=== PATIENT | female | born 1995 | race Caucasian/White ===

== ENCOUNTER 2024-04-29 11:30 | Inpatient (IN) | payer MEDICAID ==
[~2024-04-29] VITALS: Ht 167.6 cm; Wt 119.1 kg
[2024-05-10] VITALS (43 sets, daily range): BP systolic 108–169; BP diastolic 56–96; PULSE 60–106; TEMP 97.7–98.4
[2024-05-10] MEDS ORDERED: LR 1,000 ML IV SCH (06:15)
[2024-05-10] MEDS ORDERED: LR & Oxytocin 500 ML IV SCH ×2 (06:15)
--- NOTE | 2024-05-10 06:30 | NUR ---
0605- Pt arrives on unit ambulatory for scheduled induction of labor. 0616- EFM and TOCO on and tracing well. O2 sat monitor on and tracing maternal HR. VSS. Assessments completed. Unable to determine FHR baseline, FHR begins at 165 bpm then steadily decreases to 155 bpm over 15 mins, minimal variability noted through out. Pt denies complication with . Pt denies VB/LOF/UCs. +FM per Pt.
[2024-05-10 07:47] LABS: BASO % 0.2 % (0.0-2.0); EOS # 0.1 K/mm3 (0.0-0.7); EOS % 0.5 % (0.0-4.0); GRAN # 7.2 K/mm3 (1.4-6.5); GRAN % 70.1 % (42.2-75.2); HEMOGLOBIN 12.2 g/dl (12.5-16.0); LYMPH # 2.2 K/mm3 (1.2-3.4); LYMPH % 21.3 % (20.0-51.0); MEAN CELL VOLUME 93 fl (80.0-100.0); MEAN CORPUSCULAR HEMOGLOBIN 31 pg (27-31); MEAN CORPUSCULAR HGB CONC 33 g/dl (33.0-37.0); MEAN PLATELET VOLUME 11.4 fl (7.4-10.4); MONO # 0.8 K/mm3 (0.1-0.6); MONO % 7.6 % (1.7-9.3); PLATELET COUNT 235 K/mm3 (130-400); RED BLOOD COUNT 3.93 M/mm3 (4.10-5.30); REDCELL DISTRIBUTION WIDTH-CV 12.9 % (11.5-14.5)
[2024-05-10 07:49] LABS: HEMATOCRIT 36.5 % (37.0-47.0)
[2024-05-10 07:59] LABS: TRICYCLIC ANTIDEPRESS URINE NEGATIVE (NEGATIVE)
--- NOTE | 2024-05-10 08:45 | NUR ---
0836- Dr Upton at bedside, discusses IOL, Pt denies questions. Bedside US performed by , fam presentation. SVE and AROM, large amount of clear, odorless fluid noted. Pt tolerated well.
--- NOTE | 2024-05-10 10:30 | NUR ---
1015- Pt very uncomfortable with UCs, requesting epidural at this time. SVE per Pt request. Pt repositions for comfort, IVF bolus initiated. Yuni Pike, IBRAHIMA updated but doing epidural in other room.
--- NOTE | 2024-05-10 11:00 | NUR ---
Pt updated that CLIENT FINANCE ANALYST was called to emergency C/S. Pt understanding.
--- NOTE | 2024-05-10 11:15 | NUR ---
1110- Pt calls this RN to bedside, reports feeling pressure with UCs. SVE with Pt's permission. /2, PRIVATE EQUITY ANALYST still unavailable, Pt continues to be understanding despite being very uncomfortable with UCs. FHR and TOCO adjusted by RN.
--- NOTE | 2024-05-10 11:30 | NUR ---
1115- This RN remains at bedside with Pt, coaching through UCs. Pt not coping well with pain. FHR not tracing well due to maternal frequent position changes and pain, adjusted frequently by this RN. 1125- Pitocin off due to not being able to assess FHR tracing and UCs on monitor. Pt crying approximately every 2 mins with UCs. This RN remains at bedside with Pt.
--- NOTE | 2024-05-10 11:45 | NUR ---
1140- Pt assited to sitting on side of bed then standing at bedside for comfort. This RN remains at bedside adjusting monitors.
[2024-05-10] MEDS ORDERED: ROPivacaine PF 0.2% 200 ML IV ONE (11:58)
--- NOTE | 2024-05-10 12:15 | NUR ---
1154- Addison, AWS SOLUTION ARCHITECT at bedside. Pt sitting on edge of bed. Addison discusses epidural and answers questions. 1204- Pt assisted to sitting for epidural placement. O2 sat monitor on and tracing maternal HR. US noted to be tracing maternal HR due to maternal position. 1216- Test dose, see anesthesia record. 1221- Pt assisted to semi-fowlers with WL, EFM and TOCO adjusted. This RN remains at bedside monitoring VS and FHR.
[2024-05-10] MEDS ORDERED: Naloxone 0.4 MG/ML VIAL IV PRN ×3 (12:45→15:30)
[2024-05-10] MEDS ORDERED: diphenhydrAMINE 25 MG CAP PO PRN ×2 (12:45)
[2024-05-10] MEDS ORDERED: Ondansetron 4 MG/2 ML VIAL IV PRN ×2 (12:45)
[2024-05-10] MEDS ORDERED: ePHEDrine 50 MG/10 ML VIAL IV PRN ×2 (12:45)
[2024-05-10] MEDS ORDERED: diphenhydrAMINE 50 MG/ML 1 ML VIAL IV PRN ×2 (12:45)
--- NOTE | 2024-05-10 14:33 | NUR ---
1420- Pt calls RN to bedside with complaints of intense pressure, SVE complete/+[address] Upton notified and he reports coming to hospital now. Pt and room prepped for delivery. Antwon, nursery RN and Jose Luis, bellows charger assembler at bedside. Perdomo removed without difficulty. 1427- Dr Upton at bedside. Pt begins pushing with UC. MD monitoring FHR tracing from bedside. 1433- of viable female infant. Tended to by nursery RN. 1436- Spontaneous delivery of placenta, Pitocin restarted at 333ml/hr. Fundus massaged to firm by MD. Perineum intact. Pericare provided. Clean chux and ice pack under Pt.
[2024-05-10] MEDS ORDERED: Loratadine 10 MG TAB PO PRN (14:45)
[2024-05-10] MEDS ORDERED: Magnes Hydrox (MOM) 80 MG/ML 30 ML CUP PO PRN (14:45)
[2024-05-10] MEDS ORDERED: oxyCODONE 5 MG TAB PO PRN (15:30)
[2024-05-10] MEDS ORDERED: Measles/Mumps/Rubella Virus Vaccine Live w Diluent 0.5 ML VIAL SQ SCH (15:30)
[2024-05-10] MEDS ORDERED: Witch Hazel 50% Pads Bulk TUB TP PRN (15:30)
[2024-05-10] MEDS ORDERED: Mag/Al Hydrox/Simeth Susp 30 ML CUP PO PRN (15:30)
[2024-05-10] MEDS ORDERED: Acetaminophen 500 MG TAB PO SCH (15:30)
[2024-05-10] MEDS ORDERED: Phenylephrine/Mineral Oil/Petrolatum 57 GM TUBE RC PRN (15:30)
[2024-05-10] MEDS ORDERED: Ibuprofen 600 MG TAB PO SCH (15:30)
[2024-05-10] MEDS ORDERED: Sennosides/Docusate 8.6-50 MG TAB PO SCH (17:00)
[2024-05-10] MEDS ORDERED: traZODone 50 MG TAB PO PRN (21:00)
[2024-05-11 06:00] VITALS: BP 125/57; PULSE 68; TEMP 98.2
[2024-05-11 06:46] LABS: HEMOGLOBIN 11.4 g/dl (12.5-16.0)
[2024-05-11 06:47] LABS: HEMATOCRIT 32.9 % (37.0-47.0)
[2024-05-11 07:16] VITALS: BP 123/80; PULSE 68; TEMP 97.8
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
--- NOTE | 2024-05-11 15:46 | NUR ---
Casing Wringer Operator spoke with MILVIA Santana with Dr. Murphy and provided update from social service consult.
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
--- NOTE | 2024-05-11 17:40 | NUR ---
PATIENT DISCHARGED TO [facility]. PATIENT VERBALIZED UNDERSTANDING OF DISCHARGE INSTRUCTIONS.
== END 2024-05-11 17:40 | disposition home or self-care (01) | DRG 806 ==
LOC: LDR 05-10 05:57 → OB 05-10 11:29
PROVIDERS: ADMIT Obstetrics & Gynecology
PROC: 10E0XZZ Delivery of Products of Conception, External Approach (ICD-10-PCS; principal; 2024-05-10)
PROC: 3E033VJ Introduction of Other Hormone into Peripheral Vein, Percutaneous Approach (ICD-10-PCS; 2024-05-10)
PROC: 10907ZC Drainage of Amniotic Fluid, Therapeutic from Products of Conception, Via Natural or Artificial Opening (ICD-10-PCS; 2024-05-10)
DX: O99.344 Other mental disorders complicating childbirth (principal); F84.0 Autistic disorder; Z37.0 Single live birth; O99.214 Obesity complicating childbirth; Z3A.39 39 weeks gestation of pregnancy; F41.9 Anxiety disorder, unspecified; F31.9 Bipolar disorder, unspecified; F42.9 Obsessive-compulsive disorder, unspecified
CPT/HCPCS: J2590; J2795; J7120